=== PATIENT | male | born 1925 | race Caucasian/White ===

== ENCOUNTER 2016-09-21 20:57 | Emergency (ER) | payer MEDICARE, BC ==
[~2016-09-21] VITALS: Ht 170.2 cm; Wt 68.5 kg
[~2016-09-21 20:57] MED LIST: FINASTERIDE 5 MG TABLET; TAMS0.4C34; VENL150C58
[2016-09-21 21:33] LABS: BASOPHILS % (AUTO) 0.7 % (0.0-2.0); DIFF TOTAL % 100 %; EOSINOPHILS # (AUTO) 0.1 /CMM (0.0-0.7); EOSINOPHILS % (AUTO) 1.8 % (0.0-6.0); HEMATOCRIT 35 % (39-51); HEMOGLOBIN 11.9 g/dL (13.5-17.5); LYMPHOCYTES # (AUTO) 1.8 /CMM (0.8-4.8); LYMPHOCYTES % (AUTO) 35.3 % (20.0-44.0); MEAN CORPUSCULAR HEMOGLOBIN 31 PG (26.0-33.0); MEAN CORPUSCULAR HGB CONC 34 g/dl (31.0-36.0); MEAN CORPUSCULAR VOLUME 92 fL (80-96); MONOCYTES # (AUTO) 0.7 /CMM (0.1-1.30); MONOCYTES % (AUTO) 12.9 % (2.0-12.0); NEUTROPHILS # (AUTO) 2.6 /CMM (1.8-8.9); NEUTROPHILS % (AUTO) 49.3 % (43.0-81.0); PLATELET COUNT (AUTO) 202 /CMM (150-450); RED BLOOD CELL COUNT(AUTO) 3.81 MIL/uL (4.5-6.0); WHITE BLOOD COUNT (AUTO) 5.2 K/uL (4.3-11.0)
[2016-09-21 21:47] LABS: INR 0.95 (0.87-1.13)
[2016-09-21 21:48] LABS: CALCIUM, SERUM 8.4 mg/dL (8.5-10.1); POTASSIUM 4.2 mmol/L (3.5-5.1)
[2016-09-21] MEDS ORDERED: LIDOCAINE 2% JEL UROJET 10 ML MM ONE ×2 (23:12→23:30)
[2016-09-21 23:57] LABS: KETONES,URINE NEGATIVE (NEGATIVE); LEUKOCYTE ESTERASE ,URINE NEGATIVE (NEGATIVE); PH,URINE 6.5 (5.0-8.0)
[2016-09-22 00:08] LABS: ADD UA MICROSCOPIC YES
[2016-09-22 00:14] LABS: RBC,URINE TOO NUMEROUS TO COUN /HPF (0-2)
[2016-09-22 00:15] LABS: ADD URINE CULTURE YES
[2016-09-22 00:28] VITALS: BP 122/70
== END 2016-09-22 00:29 | disposition home or self-care (01) ==
LOC: ER 21:03
DX: R31.9 Hematuria, unspecified (principal); E78.00 Pure hypercholesterolemia, unspecified; F32.9 Major depressive disorder, single episode, unspecified
CPT/HCPCS: 36415; 51702; 74176; 80048; 81001; 85025; 85730; 87086; 99285; A4606; J3490; 81000-TC; Z7610

== ENCOUNTER 2017-03-25 23:54 | Emergency (ER) | payer MEDICARE, BC ==
[~2017-03-25] VITALS: Ht 165.1 cm; Wt 67.6 kg
--- NOTE | 2017-03-26 00:05 | NUR ---
PRESENTS SELF TO ED DT URINARY RETENTION X 4 HOURS. PATIENT REPORTED HEMATURIA. PATIENT ALREADY ON ATB FOR UTI SINCE THRUSDAY WITH NO HELP. PATIENT IS AFEBRILE. DENIES N/V. VSS.
[2017-03-26 00:25] LABS: APPEARANCE,URINE CLOUDY (CLEAR); BILIRUBIN,URINE NEGATIVE (NEGATIVE); BLOOD, URINE 3+ Ery/uL (NEGATIVE); COLOR,URINE YELLOW (YELLOW); KETONES,URINE NEGATIVE (NEGATIVE); LEUKOCYTE ESTERASE ,URINE TRACE (NEGATIVE); NITRITE, URINE NEGATIVE (NEGATIVE); PROTEIN,URINE 1+ mg/dl (NEGATIVE); UGLUCOSE NEGATIVE (NEGATIVE); UROBILINOGEN,URINE 0.2 EU/dL (0.2)
[2017-03-26 00:30] LABS: BACTERIA,URINE None seen /HPF (None Seen); RBC,URINE 81-100 /HPF (0-2); SQUAMOUS EPITHELIAL CELL,UR Few /HPF (None Seen)
[2017-03-26 00:32] LABS: URINE AMORPHOUS URATE Rare /HPF (None Seen)
--- NOTE | 2017-03-26 00:37 | NUR ---
INFORMED DR. GRIFFNI AWARE F/C OUTPUT AT THIS TIME IS 250CC
--- NOTE | 2017-03-26 01:13 | NUR ---
Patient discharged to home in stable condition. Written and verbal after care instructions given. Patient verbalizes understanding of instruction. PT ambulatory with a steady gait. PATIENT DISCHARGED WITH LEG BAG PER MD. INSTRUCTED TO F/U WITH RADIOLOGY AND CATHETER CARE. PATIENT VERBALIZED UNDERSTANDING.
[2017-03-26 01:15] VITALS: BP 125/76
[2017-03-26] MEDS ORDERED: CHOL100040 PO (09:10)
[2017-03-26] MEDS ORDERED: ATOR10TA PO (09:10)
[2017-03-26] MEDS ORDERED: TAMS-12 PO (09:10)
[2017-03-26] MEDS ORDERED: VENL150C2 PO (09:10)
[2017-03-26] MEDS ORDERED: VIT1CAPS44 PO (09:10)
[2017-03-26] MEDS ORDERED: FINA5TAB3 PO (09:10)
== END 2017-03-26 01:16 | disposition home or self-care (01) ==
LOC: ER 23:55
DX: R31.9 Hematuria, unspecified (principal); R33.9 Retention of urine, unspecified; F32.9 Major depressive disorder, single episode, unspecified; E78.00 Pure hypercholesterolemia, unspecified
CPT/HCPCS: 81000-TC; A4606; J3490; Z7610

== ENCOUNTER 2017-03-26 06:36 | Inpatient (IN) | payer MEDICARE, BC ==
[~2017-03-26] VITALS: Ht 167.6 cm; Wt 61.2 kg
[2017-03-26] VITALS (9 sets, daily range): BP systolic 99–154; BP diastolic 64–91
--- NOTE | 2017-03-26 06:45 | NUR ---
DR. GENTILE AT BEDSIDE FOR EVAL.
--- NOTE | 2017-03-26 06:48 | NUR ---
PATIENT TO ED DT HEMATURIA. FC INSERTED TO ED EARLIER ANDPT WAS DISCHARGE. PT DENIES PAIN. REMAINS AFEBRILE. VSS
--- NOTE | 2017-03-26 06:55 | NUR ---
PER DR SANDERS TO IRRIGATE THE BLADDER, THEN REPORT AFTER 20MINS.
--- NOTE | 2017-03-26 07:00 | NUR ---
1L NS USED TO IRRIGATE THE BLADDER, PER MD WE'LL NEED MORE , EXPLAIN IT TO THE PT, BUT PT ALREADY COMPLAINING OF PAIN
--- NOTE | 2017-03-26 07:06 | NUR ---
INFORMED DR GENTILE THAT PT IS REFUSING TO CONTINUE WITH IRRIGATION BECAUSE HE'S IN SO MUCH PAIN AND PT ASKING FOR PAIN MEDICATION. PER HE WILL TALK TO THE PT
--- NOTE | 2017-03-26 07:24 | NUR ---
IRRIGATED A TOTAL OF 3L, INITIALLY WITH BRIGHT RED BLOOD THEN WITH CLOT AND LASTLY PRYOR RED, DR GENTILE SAW THE COLOR OF THE URINE AFTER IRRIGATION, STATED TO LEAVE IT FOR NOW AND WILL CONTINUE MONITORING THE PT.
--- NOTE | 2017-03-26 07:25 | NUR ---
REPORT GIVEN TO MARCELLO GARCES. PT IN BED, AWAKE, AT BED SIDE, VSS, REPORT GIVEN TO MARCELLO GARCES FOR CONTINUITY OF CARE
[2017-03-26 07:44] LABS: BASOPHILS # (AUTO) 0.1 /CMM (0.0-0.2); EOSINOPHILS # (AUTO) 0.1 /CMM (0.0-0.7); HEMATOCRIT 33 % (39-51); HEMOGLOBIN 10.9 g/dL (13.5-17.5); LYMPHOCYTES # (AUTO) 1.5 /CMM (0.8-4.8); MEAN CORPUSCULAR HEMOGLOBIN 31 PG (26.0-33.0); MEAN CORPUSCULAR HGB CONC 33 g/dl (31.0-36.0); MEAN CORPUSCULAR VOLUME 94 fL (80-96); MONOCYTES # (AUTO) 0.5 /CMM (0.1-1.30); MONOCYTES % (AUTO) 9.5 % (2.0-12.0); NEUTROPHILS # (AUTO) 3.5 /CMM (1.8-8.9); NEUTROPHILS % (AUTO) 62.5 % (43.0-81.0); PLATELET COUNT (AUTO) 200 /CMM (150-450); RDW COEFFICIENT OF VARIATION 15.6 (11.5-15.0); RED BLOOD CELL COUNT(AUTO) 3.48 MIL/uL (4.5-6.0); WHITE BLOOD COUNT (AUTO) 5.6 K/uL (4.3-11.0)
[2017-03-26 07:57] LABS: INR 0.96 (0.87-1.13); PROTHROMBIN TIME 10.3 SECS (9.5-12.7)
[2017-03-26 07:58] LABS: CALCIUM, SERUM 8.3 mg/dL (8.5-10.1); CARBON DIOXIDE 29 mmol/L (21-32); CHLORIDE 106 mmol/L (98-107); CREATININE 0.8 mg/dL (0.6-1.3); GLUCOSE 93 mg/dL (74-106); POTASSIUM 4.3 mmol/L (3.5-5.1); SODIUM SERUM 140 mmol/L (136-145); UREA NITROGEN, BLOOD 23 mg/dL (7-18)
--- NOTE | 2017-03-26 09:02 | NUR ---
[facility]
[2017-03-26] MEDS ORDERED: FINA5TAB3 PO (09:10)
[2017-03-26] MEDS ORDERED: VENL150C2 PO (09:10)
[2017-03-26] MEDS ORDERED: CHOL100040 PO (09:10)
[2017-03-26] MEDS ORDERED: VIT1CAPS44 PO (09:10)
[2017-03-26] MEDS ORDERED: TAMS-12 PO (09:10)
[2017-03-26] MEDS ORDERED: ATOR10TA PO (09:10)
--- NOTE | 2017-03-26 10:00 | NUR ---
1L STERILE WATER MANUAL IRRIGATION
--- NOTE | 2017-03-26 10:04 | NUR ---
CALL BACK FROM DR DONIS,ACCEPTED TO GO TO DR JOSE G WINTERS PAGED
--- NOTE | 2017-03-26 10:11 | NUR ---
DR MALIKA SILVERIO AT [phone] Addendum: 03/26/[address] MALIKA SILVERIO AT [phone]
--- NOTE | 2017-03-26 10:35 | NUR ---
DR ARAIZA PAGED AGAIN
--- NOTE | 2017-03-26 10:46 | NUR ---
CALL BACK FROM DR ARAIZA, SPOKE WITH DR GENTILE AND ADVICED HIM TO ADMIT PATIENT HERE SINCE HE JUST NEED BLADDER IRRIGATION. [facility] CALLED FOR A BED
--- NOTE | 2017-03-26 11:20 | NUR ---
GAVE REPORT TO BENITO JURADO ACCEPTING.
--- NOTE | 2017-03-26 12:12 | NUR ---
MS RN ADMITTING NOTE PATIENT CAME TO THE UNIT VIA GURNEY FROM ER. A/O X 4, FORGETFUL. FAMILY AT THE BEDSIDE. ADMITTING DEPALLETIZER OPERATOR TONY NUÑEZ NOTIFIED.
--- NOTE | 2017-03-26 13:00 | NUR ---
MS RN NOTE ASSISTED TONY NUÑEZ NP IN MANUALLY IRRIGATING PATIENT'S BLADDER TO ELIMINATE CLOTS. PATIENT TOLERATED PROCEDURE WELL.
--- NOTE | 2017-03-26 16:25 | NUR ---
MS RN NOTE PER TONY GARCIA BENEFITS CONSULTANT PATIENT NEEDS TO BE TRANSFERRED TO ICU FOR 1:1 OBSERVATION AND MANUAL CATHETER IRRIGATION. NURSING DIESEL DINKEY OPERATOR NOTIFIED PATIENT/FAMILY NOTIFIED. ICU NOTIFIED. WAITING FOR A BED.
--- NOTE | 2017-03-26 16:52 | NUR ---
MS RN NOTE GAVE REPORT TO ICU NURSE ADOLPH ON PATIENT. WILL ASSIST PATIENT IN TRANSPORT/TRANSFER NOW.
--- NOTE | 2017-03-26 17:07 | NUR ---
MS RN NOTE PER TONY NUÑEZ NP PATIENT NEEDS TO BE ON THREE WAY BLADDER IRRIGATION. WILL GATHER SUPPLIES AND ASSIST TONY AT THE BEDSIDE.
[2017-03-26 17:47] LABS: BASOPHILS % (AUTO) 0.3 % (0.0-2.0); EOSINOPHILS % (AUTO) 0.4 % (0.0-6.0); HEMATOCRIT 32 % (39-51); HEMOGLOBIN 10.9 g/dL (13.5-17.5); LYMPHOCYTES # (AUTO) 1.3 /CMM (0.8-4.8); LYMPHOCYTES % (AUTO) 19.4 % (20.0-44.0); MEAN CORPUSCULAR HEMOGLOBIN 32 PG (26.0-33.0); MEAN CORPUSCULAR HGB CONC 34 g/dl (31.0-36.0); MEAN CORPUSCULAR VOLUME 94 fL (80-96); MONOCYTES # (AUTO) 0.6 /CMM (0.1-1.30); MONOCYTES % (AUTO) 9.1 % (2.0-12.0); NEUTROPHILS # (AUTO) 4.9 /CMM (1.8-8.9); NEUTROPHILS % (AUTO) 70.8 % (43.0-81.0); PLATELET COUNT (AUTO) 214 /CMM (150-450); RDW COEFFICIENT OF VARIATION 15.6 (11.5-15.0); RED BLOOD CELL COUNT(AUTO) 3.43 MIL/uL (4.5-6.0); WHITE BLOOD COUNT (AUTO) 6.9 K/uL (4.3-11.0)
--- NOTE | 2017-03-26 18:25 | NUR ---
BANK COMPLIANCE OFFICER ICU TRANSFER NOTE PATIENT WAS TRANSFERRED TO ICU VIA BED. ENDORSED TIMOTHY AT ICU TO MILI PIERSON. LEFT THE PATIENT IN ROOM 251 IN PRECENCE OF MILI PIERSON AND TONY NUÑEZ PEDICAB DRIVER. PATIENT WAS STABLE. DENIES CHEST PAIN/SOB. IV SITE PATENT.
--- NOTE | 2017-03-26 18:30 | NUR ---
PLANER OPERATOR- Received pt as transfer from [facility] via bed. Pt a/o x3. LAC 18G HL flushed, patent and intact. IV site free of redness, swelling and inflammation. Three-way banerjee catheter in place. Heather Obrien ELECTRICAL SIGN WIRER HELPER at bedside performing manual bladder irrigation. Will continue to monitor.
--- NOTE | 2017-03-26 20:18 | NUR ---
RN:ICU: PT RECEIVED IN BED ALERT AND ORIENTED. STATES BLADDER PAIN IS CURRENTLY 2-3 OUT OF 10 AND REPORTS GREAT RELIEF FROM PREVIOUS PAIN. PT RECEIVING CONTINUOUS BLADDER IRRIGATION PER MD ORDERS WITH PRN MANUAL BLADDER IRRIGATION. PT NOTED TO HAVE SIGNIFICANT HEMATURIA WITH CLOTS. NO ACUTE DISTRESS NOTED. PT TAKEN TO CT OF ABD/PELVIS PER MD ORDERS, WITH CHARGE NURSE ED. VSS. UPDATES GIVEN TO AT THE BEDSIDE. WILL CONTINUE TO MONITOR CLOSELY.
--- NOTE | 2017-03-26 20:46 | NUR ---
RN:ICU:TONY BICYCLE RACER AT THE BEDSIDE. CONTINUOUS BLADDER IRRIGATION PER BICYCLE RACER ORDERS. PER BICYCLE RACER SHE DISCUSSED CASE WITH UROLOGIST. NO NEW ORDERS EXCEPT TO RECHECK H/H AT 0000. PT MAY TRANSFER IN AM. PT NPO AFTER MIDNIGHT.
--- NOTE | 2017-03-26 21:33 | NUR ---
RN:ICU: PT COMPLAINING OF SLIGHT BLADDER PAIN. MANUAL IRRIGATION PERFORMED WITH COPIOUS AMOUNTS OF SMALL CLOTS. BLADDER IRRIGATION PLACE ON HOLD. URINE DRAINING FROM CATHETER FOLLOWING MANUAL IRRIGATION. INFORMED PT THAT THE LARGE CATHETER SHOULD BE PLACED CLOTS ARE CLOGGING CATHETER. PT DECLINED TO CHANGE THE CATHETER AT THIS TIME. BLADDER IRRIGATION RESUMED IT IS DRAINING ADEQUATELY. WILL CONTINUE TO MONITOR CLOSELY.
--- NOTE | 2017-03-26 22:14 | NUR ---
RN:ICU: CALLED RADIOLOGY TO F/U WITH CT ABD/PELVIS RESULTS. PENDING RESULTS.
--- NOTE | 2017-03-26 22:54 | NUR ---
RN:ICU: SPOKE WITH TONY REGARDING THE PRESENCE OF COPIOUS CLOTS WITH MANUAL BLADDER IRRIGATION. INSTRUCTED TO CHANGE CATHETER TO 18 MALAYSIAN. PT UPDATED REGARDING POC AND AGREES. F/C CHANGED TO 18 MALAYSIAN WITH OUT DIFFICULTY. CLOTS PASSING EASILY AFTER INSERTION OF NEW CATHETER. ALL LINENS CHANGED. CONTINUOUS BLADDER IRRIGATION RUNNING. PT RESTING COMFORTABLY. VSS. WILL CONTINUE TO MONITOR CLOSELY.
[2017-03-27] VITALS (18 sets, daily range): BP systolic 118–158; BP diastolic 38–101
[2017-03-27 00:39] LABS: HEMOGLOBIN 10.4 g/dL (13.5-17.5)
[2017-03-27 04:35] LABS: BASOPHILS % (AUTO) 0.5 % (0.0-2.0); EOSINOPHILS # (AUTO) 0.1 /CMM (0.0-0.7); EOSINOPHILS % (AUTO) 1.4 % (0.0-6.0); HEMATOCRIT 32 % (39-51); HEMOGLOBIN 10.6 g/dL (13.5-17.5); LYMPHOCYTES # (AUTO) 1.4 /CMM (0.8-4.8); LYMPHOCYTES % (AUTO) 18.4 % (20.0-44.0); MEAN CORPUSCULAR HEMOGLOBIN 32 PG (26.0-33.0); MEAN CORPUSCULAR HGB CONC 34 g/dl (31.0-36.0); MEAN CORPUSCULAR VOLUME 95 fL (80-96); MONOCYTES # (AUTO) 0.8 /CMM (0.1-1.30); MONOCYTES % (AUTO) 10.4 % (2.0-12.0); NEUTROPHILS # (AUTO) 5.2 /CMM (1.8-8.9); NEUTROPHILS % (AUTO) 69.3 % (43.0-81.0); PLATELET COUNT (AUTO) 209 /CMM (150-450); RDW COEFFICIENT OF VARIATION 15.5 (11.5-15.0); RED BLOOD CELL COUNT(AUTO) 3.33 MIL/uL (4.5-6.0); WHITE BLOOD COUNT (AUTO) 7.5 K/uL (4.3-11.0)
[2017-03-27 04:51] LABS: CHOLESTEROL 143 mg/dL (<200); HDL CHOLESTEROL 87 mg/dL (40-60); LDL 51 mg/dL (0-99); TRIGLYCERIDES 62 mg/dL (30-150)
[2017-03-27 04:57] LABS: CALCIUM, SERUM 7.8 mg/dL (8.5-10.1); CARBON DIOXIDE 28 mmol/L (21-32); CHLORIDE 104 mmol/L (98-107); CREATININE 0.9 mg/dL (0.6-1.3); GLUCOSE 100 mg/dL (74-106); PHOSPHORUS 3.7 mg/dL (2.5-4.9); POTASSIUM 3.4 mmol/L (3.5-5.1); SODIUM SERUM 139 mmol/L (136-145); UREA NITROGEN, BLOOD 16 mg/dL (7-18)
--- NOTE | 2017-03-27 07:40 | NUR ---
ICU/RN PT IS AWAKE ,ALERT,[id number].V/S STABLE,AFEBRILE.NO PAIN REPORTED AT THIS TIME.IV-HL.3 WAY F/C DRAINING WITH BLOODY URINE WITH A LOT OF BLOOD CLOTH.F/C CONTINUOUS IRRIGATED WITH NS.SKIN INTACT.FAMILY AT BEDSIDE.
--- NOTE | 2017-03-27 08:05 | NUR ---
ICU/RN PT C/O OF BLADDER PAIN AND CRUMBS.TYLENOL 650 MG PO GIVEN ORDERED. FAMILY AT BED SIDE.
--- NOTE | 2017-03-27 08:30 | NUR ---
ICU/RN PT CONTINUE TO COMPLAIN OF BLADDER PAIN.NO URINE OUTPUT AT THIS TIME. NORCO PO GIVEN .F/C FLUSHED AND IRRIGATE.
--- NOTE | 2017-03-27 13:20 | NUR ---
ICU/RN PT C/O OF BLADDER PAIN HAS A LOT OF BLOOD CLOTH ,F/C IRRIGATED ORDERED.NORCO 1 TAB PO GIVEN.
--- NOTE | 2017-03-27 13:55 | NUR ---
ICU/RN PT TRANSFER TO [facility].REPORT GIVEN TO SONJA/MILI.LEFT VIA AMBULANCE IN STABLE CONDITION.
--- NOTE | 2017-03-27 14:20 | NUR ---
ICU/RN UNABLE TO REASSESS PAIN DUE TO PT ALREADY TRANSFER FROM THE HOSPITAL.
== END 2017-03-27 14:30 | disposition short-term general hospital (02) | DRG 696 ==
LOC: ER 06:37 → MED 11:26 → ICU 18:25
PROVIDERS: ADMIT Nurse Practitioner Acute Care; ATTEND Nurse Practitioner Acute Care
DX: R31.9 Hematuria, unspecified (principal); F32.9 Major depressive disorder, single episode, unspecified; E78.5 Hyperlipidemia, unspecified; R33.9 Retention of urine, unspecified; Z79.899 Other long term (current) drug therapy; Z85.46 Personal history of malignant neoplasm of prostate
CPT/HCPCS: 36415; 71250-TC; 76770-TC; 80048-TC; 80061-TC; 83735-TC; 84100-TC; 85025-TC; 85027-TC; 85610-TC; 85730-TC; 86850-TC; 87081-TC; A4217; A4606; J1170; J2270; J7030; Z7610